=== PATIENT | male | born 1955 | race Caucasian/White ===

== ENCOUNTER 2018-11-27 16:12 | Emergency (ER) | payer OTHER ==
[~2018-11-27] VITALS: Ht 185.4 cm; Wt 88.5 kg
--- NOTE | ~2018-11-27 | EKG ---
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
[~2018-11-27 16:12] MED LIST: ASPIRIN81 M1 PO; FLEXERIL10 MG PO; NAPROSYN250 MG PO; NEURONTIN300 MG PO
[2018-11-27 18:45] LABS: BASO # 0.1 10*3/uL (0.0-0.1); BASO % 0.5 % (0.0-1.0); EOS # 0.1 10*3/uL (0.0-0.4); EOS % 1.1 % (1.0-4.0); HEMOGLOBIN 16.7 g/dl (14.0-18.0); LYMPH # 2.4 10*3/uL (1.3-4.4); LYMPH % 21.6 % (27.0-41.0); MEAN CELL VOLUME 94.3 fl (80.0-94.0); MEAN CORPUSCULAR HGB 32.8 pg (27.0-31.0); MEAN CORPUSCULAR HGB CONC 34.8 g/dl (33.0-37.0); MEAN PLATELET VOLUME 8.9 fl (9.6-12.3); MONO # 0.5 10*3/uL (0.1-1.0); NEUT # 7.8 10*3/uL (2.3-7.9); NEUT % 71.4 % (47.0-73.0); PLATELET COUNT AUTOMATED 238 10*3/uL (130-400); RED BLOOD COUNT 5.09 10*6/uL (4.50-5.90); RED CELL DISTRI WIDTH 12.8 % (0-14.5); WHITE BLOOD COUNT 10.9 10*3/uL (4.8-10.8)
[2018-11-27 19:01] LABS: ALKALINE PHOSPHATASE 91 U/L (45-117); BUN 12 mg/dl (7-24); CHLORIDE 105 mmol/L (98-107); CREATININE 1.06 mg/dL (0.70-1.30); POTASSIUM 4.3 mmol/L (3.5-5.1); SGOT/AST 24 IU/L (3-35); SGPT/ALT 24 U/L (12-78); SODIUM 139 mmol/L (136-145); TOTAL PROTEIN 7.5 gm/dL (6.4-8.2)
[2018-11-27 19:06] LABS: BILIRUBIN NEGATIVE (NEGATIVE); BLOOD NEGATIVE (NEGATIVE); CLARITY CLEAR (CLEAR); COLOR YELLOW (YELLOW); GLUCOSE NEGATIVE (NEGATIVE); KETONE NEGATIVE (NEGATIVE); LEUKO ESTERASE NEGATIVE (NEGATIVE); NITRITE NEGATIVE (NEGATIVE); SPECIFIC GRAVITY <= 1.005 (1.005-1.030); UROBILINOGEN 0.2 E.U./dl (0.2-1.0)
[2018-11-27 19:07] LABS: ACETAMINOPHEN (TYLENOL) < 5.0 ug/ml (10-30); ETHYL ALCOHOL < 3.0 mg/dl (<3); TROPONIN I < 0.015 ng/ml (<0.045)
[2018-11-27 19:16] LABS: URINE AMPHETAMINES < 1000 (1000ng/ml); URINE BARBITURATES > 200 (200ng/ml); URINE BENZODIAZEPINES < 200 (200ng/ml); URINE CANNABINOIDS (THC) > 50 (50ng/ml); URINE COCAINE < 300 (300ng/ml); URINE METHADONE < 300 (300ng/ml); URINE OPIATES < 300 (300ng/ml)
[2018-11-27 19:17] LABS: RBC 0-2 rbc/hpf (0-2); WBC 0-2 wbc/hpf (0-5)
[2018-11-27 19:28] LABS: URINE PHENCYCLIDINE < 25 (25ng/ml)
[2018-11-27] MEDS ORDERED: ATIVAN0.5 MG PO (20:20)
== END 2018-11-27 20:30 | disposition home or self-care (01) ==
LOC: ED 16:12
PROVIDERS: Physician Assistant
DX: F41.9 Anxiety disorder, unspecified (principal); R79.1 Abnormal coagulation profile; Z88.0 Allergy status to penicillin; Z79.82 Long term (current) use of aspirin; Z79.899 Other long term (current) drug therapy

== ENCOUNTER → 2018-12-14 | Outpatient (CLI) | payer OTHER ==
[~2018-12-14] MED LIST changes: +ATIVAN0.5 MG PO
== END | disposition home or self-care (01) ==
LOC: RAD 10:09
DX: K59.00 Constipation, unspecified (principal); R14.0 Abdominal distension (gaseous); R30.9 Painful micturition, unspecified

== ENCOUNTER → 2018-12-21 | Outpatient (CLI) | payer OTHER | END | disposition home or self-care (01) | LOC: RESCLI 02:37 | DX: M19.031 Primary osteoarthritis, right wrist (principal); M54.5 Low back pain; M25.521 Pain in right elbow; G89.29 Other chronic pain; N50.9 Disorder of male genital organs, unspecified; F17.200 Nicotine dependence, unspecified, uncomplicated; Z79.899 Other long term (current) drug therapy; Z88.0 Allergy status to penicillin ==

== ENCOUNTER → 2018-12-26 | Outpatient (CLI) | payer MEDICARE ==
[2018-12-26 09:07] LABS: VITAMIN D, 25-HYDROXY 57.9 ng/mL (30-100)
[2018-12-27 08:22] LABS: HEPATITIS B SURFACE AG Negative (Negative); HEPATITIS C VIRUS ANTIBODY <0.1 s/co (0.0-0.9)
[2018-12-27 20:08] LABS: AMPHETAMINE SCREEN, URINE Negative ng/mL (Cutoff=1000); BARBITURATES SCREEN, URINE Positive ng/mL (Cutoff=200); BENZODIAZEPINES SCREEN URINE Negative ng/mL (Cutoff=200); BUPRENORPHINE SCREEN URINE Negative ng/mL (Cutoff=10); CANNABINOID SCREEN, URINE Positive ng/mL (Cutoff=20); CREATININE, UR 112.3 mg/dL (20.0-300.0); METHADONE SCREEN, URINE Negative ng/mL (Cutoff=300); OPIATE SCREEN, URINE Negative ng/mL (Cutoff=300); OXYCODONE SCREEN URINE Negative ng/mL (Cutoff=100); PH URINE 5.6 (4.5-8.9); PROPOXYPHENE SCREEN, URINE Negative ng/mL (Cutoff=300)
== END | disposition home or self-care (01) ==
LOC: LAB 07:23
PROVIDERS: Internal Medicine
DX: Z12.5 Encounter for screening for malignant neoplasm of prostate (principal); M54.5 Low back pain; E55.9 Vitamin D deficiency, unspecified; R53.83 Other fatigue; Z79.899 Other long term (current) drug therapy

== ENCOUNTER → 2019-04-05 | Outpatient (CLI) | payer MEDICARE | END | disposition home or self-care (01) | LOC: RESCLI 00:08 | DX: M65.4 Radial styloid tenosynovitis [de Quervain] (principal); M92.211 Osteochondrosis (juvenile) of carpal lunate [Kienbock], right hand; R25.1 Tremor, unspecified; E55.9 Vitamin D deficiency, unspecified; J30.2 Other seasonal allergic rhinitis; M54.40 Lumbago with sciatica, unspecified side; G89.29 Other chronic pain; E78.5 Hyperlipidemia, unspecified; H04.129 Dry eye syndrome of unspecified lacrimal gland; K21.9 Gastro-esophageal reflux disease without esophagitis; J44.9 Chronic obstructive pulmonary disease, unspecified; E53.8 Deficiency of other specified B group vitamins; Z87.891 Personal history of nicotine dependence; Z79.899 Other long term (current) drug therapy ==

== ENCOUNTER → 2019-04-26 | Outpatient (CLI) | payer MEDICARE | END | disposition home or self-care (01) | LOC: MRI 08:53 | DX: M93.1 Kienbock's disease of adults (principal) ==

== ENCOUNTER → 2019-06-06 | Outpatient (CLI) | payer MEDICARE | END | disposition home or self-care (01) | LOC: RESCLI 14:23 | DX: M92.211 Osteochondrosis (juvenile) of carpal lunate [Kienbock], right hand (principal); E55.9 Vitamin D deficiency, unspecified; M54.40 Lumbago with sciatica, unspecified side; E78.5 Hyperlipidemia, unspecified; J30.2 Other seasonal allergic rhinitis; H04.129 Dry eye syndrome of unspecified lacrimal gland; K21.9 Gastro-esophageal reflux disease without esophagitis; J44.9 Chronic obstructive pulmonary disease, unspecified; R13.10 Dysphagia, unspecified; E53.8 Deficiency of other specified B group vitamins; R61 Generalized hyperhidrosis; Z79.899 Other long term (current) drug therapy ==

== ENCOUNTER → 2019-11-16 | Outpatient (CLI) | payer OTHER | END | disposition home or self-care (01) | LOC: MRI 12:22 | DX: I67.82 Cerebral ischemia (principal) ==

== ENCOUNTER → 2020-05-01 | Outpatient (CLI) | payer MEDICARE | END | disposition home or self-care (01) | LOC: COVID19 01:33 | DX: U07.1 COVID-19 (principal) ==

== ENCOUNTER → 2020-05-22 | Outpatient (CLI) | payer MEDICARE | END | disposition home or self-care (01) | LOC: COVID19 00:13 | DX: Z03.818 Encounter for observation for suspected exposure to other biological agents ruled out (principal) ==

== ENCOUNTER 2021-04-03 09:19 | Emergency (ER) | payer MEDICARE ==
[~2021-04-03] VITALS: Wt 90.7 kg
[2021-04-03 09:54] LABS: BASO % 0.2 % (0.0-1.0); EOS % 0.6 % (1.0-4.0); HEMATOCRIT 48.6 % (42.0-52.0); LYMPH # 1.3 10*3/uL (1.3-4.4); MEAN CELL VOLUME 96.8 fl (80.0-94.0); MEAN CORPUSCULAR HGB 32.1 pg (27.0-31.0); MEAN CORPUSCULAR HGB CONC 33.1 g/dl (33.0-37.0); MEAN PLATELET VOLUME 9.5 fl (9.6-12.3); MONO # 0.3 10*3/uL (0.1-1.0); MONO % 5.2 % (3.0-9.0); NEUT # 4.5 10*3/uL (2.3-7.9); NEUT % 72.5 % (47.0-73.0); PLATELET COUNT AUTOMATED 205 10*3/uL (130-400); RED BLOOD COUNT 5.02 10*6/uL (4.50-5.90); RED CELL DISTRI WIDTH 12.9 % (0-14.5); WHITE BLOOD COUNT 6.2 10*3/uL (4.8-10.8)
[2021-04-03 10:01] LABS: BILIRUBIN Negative (Negative); BLOOD Negative (Negative); CLARITY Clear (Clear); COLOR Yellow (Yellow); GLUCOSE Negative (Negative); KETONE Negative (Negative); LEUKO ESTERASE Negative (Negative); NITRITE Negative (Negative); PH 7.5 (4.5-8.0); SPECIFIC GRAVITY <= 1.005 (1.001-1.030); UROBILINOGEN 0.2 E.U./dl (0.0-1.0)
[2021-04-03 10:10] LABS: ALBUMIN 3.6 gm/dl (3.1-4.5); ALKALINE PHOSPHATASE 102 U/L (45-117); BUN 10 mg/dl (7-24); CHLORIDE 106 mmol/L (98-107); CREATININE 0.99 mg/dL (0.70-1.30); LIPASE 124 U/L (73-393); POTASSIUM 4.2 mmol/L (3.5-5.1); SGOT/AST 27 IU/L (3-35); SGPT/ALT 31 U/L (12-78); SODIUM 138 mmol/L (136-145); TOTAL PROTEIN 7.5 gm/dL (6.4-8.2)
[2021-04-03 10:15] LABS: WBC 0-2 wbc/hpf (0-5)
== END 2021-04-03 12:11 | disposition home or self-care (01) ==
LOC: ED 09:19
PROVIDERS: Emergency Medicine
DX: K52.89 Other specified noninfective gastroenteritis and colitis (principal); K62.5 Hemorrhage of anus and rectum; Z90.49 Acquired absence of other specified parts of digestive tract; Z79.899 Other long term (current) drug therapy; Z88.0 Allergy status to penicillin

== ENCOUNTER 2021-08-04 15:10 | Emergency (ER) | payer MEDICARE ==
[~2021-08-04] VITALS: Ht 185.4 cm; Wt 90.7 kg
== END 2021-08-04 20:00 | disposition left against medical advice (07) ==
LOC: ED 15:10
DX: S61.011A Laceration without foreign body of right thumb without damage to nail, initial encounter (principal); Z53.21 Procedure and treatment not carried out due to patient leaving prior to being seen by health care provider; W45.8XXA Other foreign body or object entering through skin, initial encounter; Y93.89 Activity, other specified; Y92.89 Other specified places as the place of occurrence of the external cause; Y99.8 Other external cause status

== ENCOUNTER 2022-11-16 11:52 | Emergency (ER) | payer MEDICARE ==
[~2022-11-16] VITALS: Wt 90.7 kg
[2022-11-16] MEDS ORDERED: PREDNISONE50 MG PO (13:03)
== END 2022-11-16 13:11 | disposition home or self-care (01) ==
LOC: ED 11:52
DX: M54.41 Lumbago with sciatica, right side (principal); Z88.0 Allergy status to penicillin; Z79.899 Other long term (current) drug therapy; Z79.82 Long term (current) use of aspirin; Z90.49 Acquired absence of other specified parts of digestive tract; Z98.890 Other specified postprocedural states

== ENCOUNTER 2022-12-01 10:52 | Emergency (ER) | payer MEDICARE ==
[~2022-12-01] VITALS: Ht 185.4 cm; Wt 88.5 kg
[~2022-12-01 10:52] MED LIST changes: +PREDNISONE50 MG PO
[2022-12-01] MEDS ORDERED: PREDNISONE10 MG PO (14:12)
[2022-12-01] MEDS ORDERED: HYDROCODONE-AC1 EAC1 PO (14:12)
== END 2022-12-01 14:19 | disposition home or self-care (01) ==
LOC: ED 10:52
DX: M54.16 Radiculopathy, lumbar region (principal); M25.551 Pain in right hip; K21.9 Gastro-esophageal reflux disease without esophagitis; F41.9 Anxiety disorder, unspecified; F32.A Depression, unspecified; Z88.0 Allergy status to penicillin; Z90.49 Acquired absence of other specified parts of digestive tract; Z98.890 Other specified postprocedural states

== ENCOUNTER 2023-03-18 10:36 | Emergency (ER) | payer MEDICARE ==
[~2023-03-18 10:36] MED LIST changes: +HYDROCODONE-AC1 EAC1 PO; +PREDNISONE10 MG PO
[2023-03-18 12:23] LABS: BILIRUBIN Negative (Negative); BLOOD Negative (Negative); CLARITY Clear (Clear); COLOR Yellow (Yellow); GLUCOSE Negative (Negative); KETONE Negative (Negative); LEUKO ESTERASE Negative (Negative); NITRITE Negative (Negative); UROBILINOGEN 0.2 E.U./dl (0.0-1.0)
[2023-03-18 12:54] LABS: BACTERIA TRACE; EPITHELIAL CELLS 0-2; RBC 0-2 rbc/hpf (0-2)
[2023-03-18] MEDS ORDERED: MEDROL DOSEPAK4 MG PO (14:25)
[2023-03-18] MEDS ORDERED: NAPROSYN500 MG PO (14:25)
[2023-03-18] MEDS ORDERED: TRAMADOL HCL50 MG PO (14:25)
[2023-03-18] MEDS ORDERED: ZANAFLEX4 MG PO (14:25)
== END 2023-03-18 14:32 | disposition home or self-care (01) ==
LOC: ED 10:36
PROVIDERS: Nurse Practitioner Family
DX: M51.36 Other intervertebral disc degeneration, lumbar region (principal); R20.2 Paresthesia of skin; R30.0 Dysuria; K21.9 Gastro-esophageal reflux disease without esophagitis; F41.9 Anxiety disorder, unspecified; Z88.0 Allergy status to penicillin; Z90.49 Acquired absence of other specified parts of digestive tract; Z98.890 Other specified postprocedural states; Z87.891 Personal history of nicotine dependence

== ENCOUNTER → 2023-10-19 | Outpatient (CLI) | payer OTHER ==
[~2023-10-19] MED LIST changes: +MEDROL DOSEPAK4 MG PO; +NAPROSYN500 MG PO; +TRAMADOL HCL50 MG PO; +ZANAFLEX4 MG PO
== END ==
LOC: RAD/SH 08:59
PROVIDERS: ATTEND Family Medicine
DX: R13.10 Dysphagia, unspecified (principal)

== ENCOUNTER → 2025-02-09 | Outpatient (CLI) | payer OTHER | END | disposition home or self-care (01) | LOC: US 02-01 13:00 | PROVIDERS: ATTEND Family Medicine | DX: E04.1 Nontoxic single thyroid nodule (principal); R13.19 Other dysphagia ==

== ENCOUNTER → 2025-05-16 | Outpatient (CLI) | payer OTHER | END | disposition home or self-care (01) | LOC: ORTHO 03:57 | PROVIDERS: ATTEND Orthopaedic Surgery | DX: M18.0 Bilateral primary osteoarthritis of first carpometacarpal joints (principal); M19.031 Primary osteoarthritis, right wrist; M25.531 Pain in right wrist; M25.532 Pain in left wrist ==

== ENCOUNTER → 2025-08-09 | Day surgery (SDC) | payer OTHER ==
[2025-08-08 11:45] LABS: BUN 13 mg/dl (9-23)
[~2025-08-09] VITALS: Ht 185.4 cm; Wt 91.2 kg
[~2025-08-09] MED LIST changes: +ACETAMINOPHEN 50 ML IV ONE; +AMITRIPTYLINE10 MG PO; +Lactated Ringer's Solution 1,000 ML IV ONE; +Lidocaine Hydrochloride 5 ML AMP ONE; +Lidocaine Hydrochloride 5 ML VIAL IV ONE; +PREDNISONE20 M1 PO; +PROPOFOL 200 MG/20 ML VIAL IV ONE; +Phenylephrine Hydrochloride 1 MG/10 ML SYRINGE IV ONE; +ePHEDrine Sulfate 25 MG/5 ML SYRINGE IV ONE
[2025-08-09 07:52] VITALS: BP 130/89
[2025-08-09 08:27] VITALS: BP 106/67
[2025-08-09 08:42] VITALS: BP 108/80
[2025-08-09 08:54] VITALS: BP 122/77
== END | disposition home or self-care (01) ==
LOC: SDC 07-30 13:15
PROVIDERS: ATTEND Orthopaedic Surgery
DX: G56.02 Carpal tunnel syndrome, left upper limb (principal); M54.9 Dorsalgia, unspecified; C44.90 Unspecified malignant neoplasm of skin, unspecified; K21.9 Gastro-esophageal reflux disease without esophagitis; F41.9 Anxiety disorder, unspecified; F32.A Depression, unspecified; J40 Bronchitis, not specified as acute or chronic; Z87.891 Personal history of nicotine dependence; Z98.890 Other specified postprocedural states; Z79.899 Other long term (current) drug therapy; Z88.0 Allergy status to penicillin

== ENCOUNTER → 2025-09-27 | Day surgery (SDC) | payer OTHER ==
[~2025-09-27] VITALS: Ht 185.4 cm; Wt 93.8 kg
[~2025-09-27] MED LIST changes: +LIPITOR40 MG PO; +Lidocaine Hydrochloride 2% 5 ML SDV IV ONE; +Lidocaine Hydrochloride 30 ML VIAL ONE; -Lidocaine Hydrochloride 5 ML AMP ONE; -Lidocaine Hydrochloride 5 ML VIAL IV ONE; +MELOXICAM15 MG PO; +MYSOLINE50 M2 PO; +PROTONIX40 MG PO; -Phenylephrine Hydrochloride 1 MG/10 ML SYRINGE IV ONE; +TAMSULOSIN HCL0.4 MG PO; +THERA TEARS1 EACH OP; -ePHEDrine Sulfate 25 MG/5 ML SYRINGE IV ONE
[2025-09-27 07:54] VITALS: BP 136/87
[2025-09-27 09:18] VITALS: BP 123/73
[2025-09-27 09:33] VITALS: BP 118/77
[2025-09-27 09:48] VITALS: BP 125/84
== END | disposition home or self-care (01) ==
LOC: SDC 09-25 05:03
PROVIDERS: ATTEND Orthopaedic Surgery
DX: G56.01 Carpal tunnel syndrome, right upper limb (principal); M54.9 Dorsalgia, unspecified; E78.00 Pure hypercholesterolemia, unspecified; Z98.890 Other specified postprocedural states; Z79.899 Other long term (current) drug therapy; Z88.0 Allergy status to penicillin; Z87.891 Personal history of nicotine dependence